=== PATIENT | female | born 1950 | race Caucasian/White ===

== ENCOUNTER 2022-03-16 07:20 | Inpatient (IN) ==
[~2022-03-16 07:20] MED LIST: Buffered Lidocaine 1% SYRIN 1 ml INTRADERM ONE; Lactated Ringers 1000 ml BAG 1,000 ML IV SCH
[2022-03-16] MEDS ORDERED: Clindamycin 900 MG/D5W BAG 900 MG/50 ML BAG IVPB ONE (07:34)
[2022-03-16] MEDS ORDERED: Midazolam 2 mg/2 ml VIAL 1 mg/ml 2 ml VIAL (2 mg) ONE ×2 (07:50→09:18)
[2022-03-16] MEDS ORDERED: Dexamethasone IV 4 MG/ML VIAL 1 ml VIAL ONE (07:50)
[2022-03-16] MEDS ORDERED: Ondansetron 4 mg VIAL 2 MG/ML 2 ml VIAL ONE ×2 (07:50→12:11)
[2022-03-16] MEDS ORDERED: Phenylephrine IV 10 MG/ML 1 ml VIAL ONE (07:50)
[2022-03-16] MEDS ORDERED: Lidocaine 2% PF 5 ML VIAL ONE (07:50)
[2022-03-16] MEDS ORDERED: fentaNYL 100 mcg/2 ml 50 MCG/ML VIAL ONE (07:50)
[2022-03-16] MEDS ORDERED: Dexmedetomidine 200 mcg/2 ml 2 ml VIAL (200 mcg) ONE (07:50)
[2022-03-16] MEDS ORDERED: Propofol 10 MG/ML 20 ML BTL ONE (07:51)
[2022-03-16] MEDS ORDERED: fentaNYL 100 mcg/2 ml 50 MCG/ML VIAL IV PRN (07:54)
[2022-03-16] MEDS ORDERED: oxyCODONE/Acetamin 5/325 mg TAB PO PRN (07:54)
[2022-03-16] MEDS ORDERED: Ondansetron 4 mg VIAL 2 MG/ML 2 ml VIAL IV PRN (07:54)
[2022-03-16] MEDS ORDERED: Naloxone 0.4 mg VIAL 0.4 mg/ml 1 ml VIAL IV PRN (07:54)
[2022-03-16] MEDS ORDERED: Bupivacaine 0.5% SDV PF 30ML VIAL ONE (08:44)
[2022-03-16] MEDS ORDERED: Morphine 2 MG/ML SYRINGE IV PRN (09:33)
[2022-03-16] MEDS ORDERED: Ondansetron ODT 4 mg TAB 4 MG TAB PO PRN (09:33)
[2022-03-16] MEDS ORDERED: Lactulose 30 ml UDC PO PRN (09:33)
[2022-03-16] MEDS ORDERED: Magnesium Hydroxide LIQ 30 ML UDC PO PRN (09:33)
[2022-03-16] MEDS ORDERED: Glycopyrrolate IV 0.2 MG/ML 1 ML VIAL ONE ×3 (09:36→11:50)
[2022-03-16] MEDS ORDERED: Clindamycin 600 MG/D5W BAG 600 MG/50 ML BAG IV SCH (10:00)
[2022-03-16] MEDS ORDERED: Phenylephrine 40 mcg/mL 10mL (400mcg) SYRINGE ONE ×2 (11:50→11:54)
[2022-03-16] MEDS ORDERED: oxyCODONE/Acetamin 5/325 mg TAB ONE (12:55)
[2022-03-16] MEDS ORDERED: Dextran 70/Hypromellose Tears Eye Drops 15 ml BTL (for Artificials Tears) BOTH EYES PRN (13:35)
[2022-03-16] MEDS: Lactated Ringers 1000 ml BAG 1,000 ML IV SCH (13:40)
[2022-03-16] MEDS: Clindamycin 600 MG/D5W BAG 600 MG/50 ML BAG IV SCH (17:37)
[2022-03-16] MEDS: Magnesium Hydroxide LIQ 30 ML UDC PO SCH (20:53)
[2022-03-17] MEDS: Lactated Ringers 1000 ml BAG 1,000 ML IV SCH ×2 (00:57→11:44)
[2022-03-17] MEDS: Clindamycin 600 MG/D5W BAG 600 MG/50 ML BAG IV SCH ×2 (00:58→11:44)
[2022-03-17] MEDS: Ondansetron 4 mg VIAL 2 MG/ML 2 ml VIAL IV PRN ×2 (05:54→17:15)
[2022-03-17 06:13] LABS: Hematocrit 36 % (35-47); Hemoglobin 11.8 g/dL (12.0-16.0); Mean Platelet Volume 7.1 fL (7.4-10.4); Platelet Count 239 10^3/uL (150-450)
[2022-03-17 06:52] LABS: Calcium 8.2 mg/dL (8.6-10.3); Potassium 3.8 mmol/L (3.5-5.0); eGFR CKD-EPI 49.4 (>60)
[2022-03-17] MEDS: Magnesium Hydroxide LIQ 30 ML UDC PO SCH ×2 (08:16→23:31)
[2022-03-17] MEDS: Vitamin THERAPEUTIC TAB PO SCH (09:14)
[2022-03-18 05:21] LABS: Hematocrit 28 % (35-47); Hemoglobin 9.4 g/dL (12.0-16.0); Mean Platelet Volume 7.1 fL (7.4-10.4); Platelet Count 184 10^3/uL (150-450)
[2022-03-18] MEDS: Vitamin THERAPEUTIC TAB PO SCH (11:14)
[2022-03-18 11:28] LABS: Calcium 8.1 mg/dL (8.6-10.3); Potassium 3.5 mmol/L (3.5-5.0); eGFR CKD-EPI 89.3 (>60)
[2022-03-18] MEDS: Magnesium Hydroxide LIQ 30 ML UDC PO SCH (11:30)
[2022-03-18 11:38] VITALS: BP 138/72
[2022-03-18 11:46] LABS: White Blood Count 4.2 10^3/uL (3.5-10.8)
[2022-03-18] MEDS ORDERED: Al Hydrox/Mg Hydrox/Simet LIQ 30 ML UDC PO ONE (11:53)
[2022-03-18] MEDS ORDERED: Metoclopramide 5 MG/ML VIAL (10 mg) IV PRN (11:54)
[2022-03-18 12:09] LABS: Magnesium 1.9 mg/dL (1.9-2.7)
== END 2022-03-18 16:45 | disposition home or self-care (01) | DRG 470 ==
LOC: AA 07:20 → INTOOBSV 07:20 → SSU 13:28
PROVIDERS: ADMIT Orthopaedic Surgery Adult Reconstructive Orthopaedic Surgery; ATTEND Orthopaedic Surgery Adult Reconstructive Orthopaedic Surgery